=== PATIENT | male | born 1940 | race Caucasian/White ===

== ENCOUNTER 2016-12-17 11:40 | Observation (INO) | payer OTHER ==
[~2016-12-17] VITALS: Ht 191.8 cm; Wt 129.1 kg
[2016-12-17] VITALS (7 sets, daily range): BP systolic 92–178; BP diastolic 66–78; PULSE 62–82; RESP 16–18; O2SAT 89–95
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
[2016-12-17] MEDS ORDERED: Ondansetron 2 mg/mL 2 mL Inj IVPUSH ONE (11:50)
[2016-12-17] MEDS ORDERED: HYDROmorphone 0.5 mg/0.5 mL iSecure Syringe IVPUSH PRN (11:50)
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
[2016-12-17 12:22] LABS: BASOPHILS % (AUTO) 0.2 % (0-3); EOSINOPHILS % (AUTO) 1.7 % (0-5); MONOCYTES % (AUTO) 11.3 % (4-12); Mean Corpuscular Hemoglobin 29.4 pg (27.0-35.0); Mean Corpuscular Volume 88.5 fL (81-100); NEUTROPHILS % (AUTO) 68.4 % (40-74); Platelet Count 166 bil/L (150-400)
[2016-12-17 12:23] LABS: INR 1.05 ratio
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
[2016-12-17] MEDS ORDERED: MetoCLOpramide 5 mg/mL 2 mL Inj IVPUSH PRN ×2 (15:35→21:09)
[2016-12-17] MEDS ORDERED: Ondansetron 2 mg/mL 2 mL Inj IVPUSH PRN (15:35)
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
[2016-12-17 16:12] LABS: APPEARANCE,URINE CLEAR (CLEAR,HAZY); COLOR,URINE YELLOW (YELLOW); OCCULT BLOOD,URINE NEGATIVE (NEGATIVE); UROBILINOGEN,URINE NORMAL (NORMAL)
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
--- NOTE | 2016-12-17 16:21 | NUR ---
Admit: Patient arrived to [facility] @ approx 1610 via stretcher. Ambulated from stretcher to bed. Stand up scale obtained. Telemetry #43 Afib 70s per property assessment monitor. Complained of chest discomfort w/activity, deep breathing and difficult to take deep breaths. Family @ bedside. Alert & oriented. Oriented to room and call light system. Bed rails up x2, bed in low and locked position, non-skid socks on for safety, encouraged to call for assistance to BR. Verbalized agreement.
[2016-12-17] MEDS ORDERED: HYDR25TA4 PO (17:07)
[2016-12-17] MEDS ORDERED: ATOR20TA PO (17:07)
[2016-12-17] MEDS ORDERED: DIAZ5TAB3 PO (17:07)
[2016-12-17] MEDS ORDERED: POTA99TA21 PO (17:07)
[2016-12-17] MEDS ORDERED: FURO40TA4 PO (17:07)
[2016-12-17] MEDS ORDERED: OMEP10CA4 PO (17:07)
[2016-12-17] MEDS ORDERED: ERGO2000 PO (17:07)
[2016-12-17] MEDS ORDERED: ZYL100 PO (17:07)
[2016-12-17] MEDS ORDERED: AMLO5TAB2 PO (17:07)
[2016-12-17] MEDS ORDERED: LORA10CA PO (17:07)
[2016-12-17] MEDS ORDERED: AMOX500C2 PO (17:07)
[2016-12-17] MEDS ORDERED: [UNRECOGNIZED DRUG - CODE] PO (17:07)
[2016-12-17] MEDS: Sodium Chloride LOK Flush 10 mL Syringe IVFLUSH SCH (17:07)
[2016-12-17] MEDS ORDERED: APIX5TAB PO (17:15)
[2016-12-17] MEDS: HYDROmorphone 1 mg/mL Inj IVPUSH PRN (18:07)
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
[2016-12-17] MEDS ORDERED: METO25TA6 PO (19:14)
[2016-12-17] MEDS ORDERED: OMEPRAZOLE 30 MG PO SCH (20:55)
[2016-12-17] MEDS ORDERED: POTA10TA12 PO (21:10)
--- NOTE | 2016-12-17 23:20 | NUR ---
O2 Sats 90% O2 saturation for VS placed on 1L O2. Followed up in an hour and verified hands were cold and rechecked O2 sats 97% on RA. Patient now on RA.
[2016-12-18] MEDS: HYDROmorphone 1 mg/mL Inj IVPUSH PRN (04:11)
[2016-12-18 04:21] VITALS: BP 166/80; PULSE 51; RESP 18; O2SAT 92
[2016-12-18 06:11] LABS: BASOPHILS % (AUTO) 0.1 % (0-3); EOSINOPHILS % (AUTO) 0.6 % (0-5); MONOCYTES % (AUTO) 10.7 % (4-12); Mean Corpuscular Hemoglobin 29.4 pg (27.0-35.0); Mean Corpuscular Volume 88.6 fL (81-100); NEUTROPHILS % (AUTO) 78.2 % (40-74); Platelet Count 131 bil/L (150-400)
[2016-12-18] MEDS ORDERED: Pantoprazole 40 mg ER24 Tablet PO SCH (06:30)
[2016-12-18] MEDS ORDERED: OXYC-530 PO (08:04)
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
[2016-12-18] MEDS: Sodium Chloride LOK Flush 10 mL Syringe IVFLUSH SCH ×2 (08:08)
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
--- NOTE | 2016-12-18 11:24 | NUR ---
Discharge: Patient discharged to home @ approx 1110. IV d/c'd intact, telemetry removed, copier repair technician notified. Personal belongings sent home with patient. Reviewed new prescription, home medication list, discharge instructions and follow up appointments. Verbalized understanding. Escorted to main entrance via wheelchair accompanied by CLIENT PORTFOLIO MANAGER. No apparent distress noted at time of discharge.
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
== END 2016-12-18 11:12 | disposition home or self-care (01) ==
LOC: SED 11:40 → MPC 16:00 → INTOOBSV 16:00 → MPC 16:02
PROVIDERS: ADMIT Student in an Organized Health Care Education/Training Program; ATTEND Student in an Organized Health Care Education/Training Program
DX: S22.20XA Unspecified fracture of sternum, initial encounter for closed fracture (principal); S26.99XA Other injury of heart, unspecified with or without hemopericardium, initial encounter; I50.9 Heart failure, unspecified; R07.89 Other chest pain; I48.91 Unspecified atrial fibrillation; I10 Essential (primary) hypertension; E78.5 Hyperlipidemia, unspecified; V43.52XA Car driver injured in collision with other type car in traffic accident, initial encounter; Y93.9 Activity, unspecified; Y92.488 Other paved roadways as the place of occurrence of the external cause; Y99.9 Unspecified external cause status; Z85.820 Personal history of malignant melanoma of skin; Z79.899 Other long term (current) drug therapy
CPT/HCPCS: 36415; 70450; 70498; 71010; 71260; 74177; 80053; 81001; 82150; 85025; 85610; 85730; 86850; 93005; 96374; 96375; 96376; 99285; C8924; G0378; J1170; J2060; J2405; Q9967